=== PATIENT | male | born 1990 ===

== ENCOUNTER 2017-04-11 12:07 | Emergency (ER) | payer SELFPAY ==
[2017-04-11 12:16] VITALS: BP 122/66
--- NOTE | 2017-04-11 13:22 | UC ---
Lower Extremity/Ankle HPI - HPI Summary HPI Summary: POSSIBLE BUGBITE ON RIGHT CALF. THREE DAYS OF TENDER RED RASH SPREADING. NO SOB. NO CHEST PAIN. [place], GETS MANY TICK BITES, BUT NO TICKS HAVE EMBEDDED RECENTLY. FELT FEVERISH LAST NIGHT. NO CALF PAIN OTHER THAN AT SITE OF SKIN LESION. NO HISTORY OF MRSA. - History of Current Complaint Chief Complaint: [employer] Stated Complaint: SKIN ISSUE Time Seen by Provider: 04/11/17 12:19 Hx Obtained From: Patient, Family/Supervisor [employer] Onset/Duration: Gradual Onset, Lasting Days, Still Present Severity Initially: Moderate Severity Currently: Moderate Pain Intensity: 5 Pain Scale Used: 0-10 Numeric Aggravating Factor(s): Standing, Ambulation, Other - TOUCH Alleviating Factor(s): Rest Able to Bear Weight: Yes - Risk Factors Gout Risk Factors: Negative DVT Risk Factors: Negative Septic Arthritis Risk Factor: Negative - Allergies/Home Medications Allergies/Adverse Reactions: Allergies Allergy/AdvReac Type Severity Reaction Status Date / Time Cefaclor [From Ceclor] Allergy Hives Verified 04/11/17 12:16 Cefixime [From Suprax] Allergy Hives Verified 04/11/17 12:16 Clarithromycin [From Biaxin] Allergy Hives Verified 04/11/17 12:16 Sodium Benzoate [From Suprax] Allergy Hives Verified 04/11/17 12:16 PMH/Surg Hx/FS Hx/Imm Hx Previously Healthy: Yes - Surgical History Surgical History: None - Family History Known Family History: Negative: Respiratory Disease, Blood Disorder - Social History Occupation: Employed Full-time Lives: With Family Alcohol Use: Daily Substance Use Type: Marijuana Smoking Status (MU): Light Every Day Tobacco Smoker Type: Cigarettes Amount Used/How Often: 3 per day Cessation Counseling: Patient Advised to Stop Review of Systems Constitutional: Negative Skin: Rash Eyes: Negative ENT: Negative Respiratory: Negative Cardiovascular: Negative Gastrointestinal: Negative Genitourinary: Negative Motor: Negative Neurovascular: Negative Musculoskeletal: Negative Neurological: Negative Psychological: Negative Is Patient Immunocompromised?: No All Other Systems Reviewed And Are Negative: Yes Physical Exam Triage Information Reviewed: Yes Appearance: Well-Appearing, No Pain Distress, Well-Nourished, Thin Vital Signs: Initial Vital Signs Temp 98.2 F 04/11/17 12:09 Pulse 89 04/11/17 12:09 Resp 16 04/11/17 12:09 BP 122/66 04/11/17 12:09 Pulse Ox 100 04/11/17 12:09 Vital Signs Reviewed: Yes Eye Exam: Normal ENT Exam: Normal ENT: Positive: Normal ENT inspection, Hearing grossly normal, Pharynx normal, TMs normal Dental Exam: Normal Neck exam: Normal Neck: Positive: Supple, Nontender, No Lymphadenopathy Respiratory Exam: Normal Respiratory: Positive: Chest non-tender, Lungs clear, Normal breath sounds, No respiratory distress Cardiovascular Exam: Normal Cardiovascular: Positive: RRR, No Murmur, Pulses Normal Abdominal Exam: Normal Abdomen Description: Positive: Nontender, No Organomegaly Musculoskeletal Exam: Normal Musculoskeletal: Positive: Strength Intact, ROM Intact, No Edema. Negative: Other: - NEGATIVE [facility] Neurological Exam: Normal Psychological Exam: Normal Psychological: Positive: Normal Response To Family Skin: Positive: rashes - TENDER MACULAR ERYTHAMTOUS RASH POSTERIOR PROXIMAL CALF 6CM X 5CM Lower Extremity Course/Dx - Differential Dx/Diagnosis Differential Diagnosis/HQI/PQRI: Cellulitis, Infection, Other - ABSCESS, DVT, CONTACT DERMATITS; LYME DISEASE Provider Diagnoses: CELLULTIS RIGHT CALF Discharge - Discharge Plan Condition: Stable Disposition: HOME Prescriptions: DOXYcycline CAP(*) [DOXYcycline 100MG CAP(*)] 100 mg PO BID #[id number] cap Patient Education Materials: Cellulitis (ED) Forms: *Work Release Referrals: Ye Robert MD [Primary Care Provider] -
== END 2017-04-11 12:40 | disposition home or self-care (01) ==
LOC: UCEAST 12:07
DX: L03.115 Cellulitis of right lower limb (principal); Z88.1 Allergy status to other antibiotic agents; F17.210 Nicotine dependence, cigarettes, uncomplicated
CPT/HCPCS: 99202; G0463